=== PATIENT | male | born 1940 | race Caucasian/White ===

== ENCOUNTER 2019-04-30 09:33 | Emergency (ER) | payer MEDICARE, OTHER ==
[~2019-04-30] VITALS: Ht 172.7 cm; Wt 62.2 kg
--- NOTE | 2019-04-30 09:37 | NUR ---
CARMELINA AJ ALS TO ER BED 7
[2019-04-30] MEDS ORDERED: ACETAMINOPHEN EXTRA STRENGTH 500 MG TAB ONE (09:43)
[2019-04-30 09:49] VITALS: BP 136/75
[2019-04-30] MEDS ORDERED: IBUPROFEN 800 MG TAB PO ONE (09:50)
[2019-04-30] MEDS ORDERED: ACETAMINOPHEN EXTRA STRENGTH 500 MG TAB PO ONE (09:50)
--- NOTE | 2019-04-30 09:50 | NUR ---
BIBA WITH C/O ALLERGIC REACTION TO BUE/BLE AND TRUNK STARTING TODAY AFTER PT HAS BEEN TAKING BACTRIM FOR 2 DAYS FOR A UTI. PT IS FEBRILE AT 89 AT THIS TIME. PT HAS CHESTER CATHETER PLACED AT THIS TIME, STATES HE DOES NOT KNOW WHY HE HAS IT. DENIES SOB, CHEST PAIN. O2 SAT RA 98%, NO LABORED BREATHING NOTED, LUNG SOUNDS CAEBL. BED IN LOW POSITION, SIDE RAIL UP X1.
[2019-04-30] MEDS ORDERED: SULF-58 PO (09:56)
--- NOTE | 2019-04-30 10:01 | NUR ---
PO MEDS GIVEN-NADR AT THIS TIME
--- NOTE | 2019-04-30 11:23 | NUR ---
ERMD BEDSIDE EVALUATING PT
--- NOTE | 2019-04-30 11:49 | NUR ---
CHESTER CATHETER REMOVED PER ORDER. PT TOLERATED PROCEDURE WELL.
--- NOTE | 2019-04-30 11:58 | NUR ---
SPOKE WITH ELIJAH, PT DAUGHTER IN LAW TO ASK IF SHE IS ABLE TO LOADING UNIT TOOL SETTER THE PT. SHE IS NOT IN THE AREA AT THIS TIME BUT SHE WILL CONTACT THE PTS SON OR OTHER DAUGHTER IN LAW TO PICK PT UP AND WILL HAVE THEM CONTACT ME TH CONFIRM.
[2019-04-30 12:29] VITALS: BP 111/57
--- NOTE | 2019-04-30 12:29 | NUR ---
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
--- NOTE | 2019-04-30 12:30 | NUR ---
Patient discharged with v/s stable. Written and verbal after care instructions given and explained. Patient alert, oriented and verbalized understanding of instructions. Ambulatory with steady gait. All questions addressed prior to discharge. ID band removed. Patient advised to follow up with PMD. Rx of PREDNISONE, BENADRYL, CIPROFLOXACIN given. Patient educated on indication of medication including possible reaction and side effects. Opportunity to ask questions provided and answered.
== END 2019-04-30 12:30 | disposition home or self-care (01) ==
LOC: MED 09:33
DX: R21 Rash and other nonspecific skin eruption (principal); N39.0 Urinary tract infection, site not specified; I10 Essential (primary) hypertension; Z79.899 Other long term (current) drug therapy; Z98.890 Other specified postprocedural states
CPT/HCPCS: 99283